=== PATIENT | male | born 1990 | race Two or more races ===

== ENCOUNTER 2024-08-26 18:10 | Emergency (ER) | payer MEDICAID, SELFPAY ==
[2024-08-26 18:22] VITALS: BP 131/85; PULSE 128; RESP 20; TEMP 38.6; O2SAT 98
--- NOTE | 2024-08-26 18:30 | PD.EDRME ---
Rapid Medical Screening Exam RME Arrival date/time: 08/26/24 18:10 Chief Complaint: Fever Time Seen by Provider: 08/26/24 18:15 Vital signs: Vital Signs Temperature 101.4 F H 08/26/24 18:22 Pulse Rate 128 H 08/26/24 18:22 Respiratory Rate 20 08/26/24 18:22 Blood Pressure 131/85 H 08/26/24 18:22 Pulse Oximetry (%) 98 08/26/24 18:22 Oxygen Delivery Method Room Air 08/26/24 18:22 Vital signs reviewed by provider: Yes RME Narrative: 33-year-old male presents to the ED with a complaint of fever, chills, body aches, numbness and tingling to his extremities. This started suddenly today. Yesterday he scraped his left garcia with a nail.
--- NOTE | 2024-08-26 18:31 | XR_ITS ---
Examination: PA lateral chest 2 views TECHNIQUE: Upright PA and lateral chest 2 views Examination time: August 26, 2024 2010 hours INDICATIONS: Flu symptoms beginning 2 days ago FINDINGS: Normal heart size. Lungs are clear. The osseous structures are intact IMPRESSION: No active disease
[2024-08-26 19:06] LABS: Lactate (Lactic Acid) 1.6 mMol/L (0.4-2.0)
[2024-08-26 19:07] LABS: Basophils % (Auto) 0 % (0-2.5); Eosinophils % (Auto) 0 % (0-10); Hematocrit 40.4 % (41.0-53.0); Hemoglobin 13.8 g/dL (13.5-16.0); Immature Granulocytes % (Auto) 0 % (0-0); Immature Granulocytes Auto 0.04 Thou/mm3 (0.00-0.00); Lymphocytes # (Auto) 1.2 Thou/mm3 (1.0-4.8); Lymphocytes % (Auto) 11 % (10-50); Mean Corpuscular HGB Conc 34.2 g/dl (31.0-37.0); Mean Corpuscular Hemoglobin 30.7 pg (25.0-35.0); Mean Corpuscular Volume 90 fL (80-100); Monocytes # (Auto) 0.9 Thou/mm3 (0.0-0.8); Monocytes % (Auto) 8 % (0-12); Neutrophils % (Auto) 80 % (37-80); Nucleated Red Blood Cell % 0 /100 WBC (0); Platelet Count 232 Thou/mm3 (140-440); RDW Standard Deviation 42.7 fL (35.1-43.9); Red Blood Count 4.49 Miln/mm3 (4.50-5.90); White Blood Count 11.2 Thou/mm3 (3.8-10.6)
[2024-08-26] MEDS: ACETAMINOPHEN 325 MG TABLET 650 MG PO (19:31)
[2024-08-26 19:46] LABS: Collection Type, Urine Clean Catch; Squamous Epithelial Cell,Urine 0 /hpf (0-5); WBC,Urine 0 /hpf (0-5)
[2024-08-26 19:49] VITALS: BP 134/85; PULSE 112; RESP 22; TEMP 38; O2SAT 95
[2024-08-26 19:58] LABS: Amorphous Crystals,Urine Present (Absent); Bilirubin,Urine Negative (Negative); Blood,Urine Negative (Negative); Glucose, Urine 1+ (Negative); Ketones,Urine Negative (Negative); Leukocyte Esterase,Urine Negative (Negative); Nitrite,Urine Negative (Negative); Protein,Urine Trace (Neg - Trace); RBC,Urine 6 /hpf (0-3); Specific Gravity,Urine 1.025 (1.001-1.035); Urobilinogen,Urine Negative mg/dL (0.0-1.0)
[2024-08-26 20:00] LABS: Clarity,Urine Turbid (Clear/Hazy); Color,Urine Lt-Orange (Lt Yel-Yel)
[2024-08-26 20:32] LABS: Alanine Aminotransferase 26 U/L (10-49); Albumin, Serum 4.6 gm/dL (3.5-5.0); Albumin/Globulin Ratio 1.7 (1.2-2.2); Alkaline Phosphatase 83 U/L (46-116); Anion Gap 6 (7-16); Aspartate Amino Transferase 30 U/L (0-34); BUN/Creatinine Ratio 6 Ratio (12-20); Bilirubin,Total 0.5 mg/dL (0.3-1.2); Blood Urea Nitrogen 6 mg/dL (9-23); Calcium 9.3 mg/dL (8.3-10.6); Calcium (Corrected) 9.3 mg/dL (8.5-10.1); Carbon Dioxide 24.8 mMol/L (20.0-31.0); Chloride 98 mMol/L (98-107); Globulin 2.7 gm/dL (2.3-3.5); Glucose 125 mg/dL (74-106); Osmolality,Calculated 257 (275-295); Potassium 3.6 mMol/L (3.4-5.1); Sodium 129 mMol/L (136-145); Total Protein 7.3 gm/dL (5.7-8.2); eGFR > 60 See Note
--- NOTE | 2024-08-26 21:03 | PD.EDADULT ---
ED General RME/HPI General Chief complaint: Fever Stated complaint: BODY ACHES, ARMS TINGLING, FEVER Time Seen by Provider: 08/26/24 18:15 Arrival date/time: 08/26/24 18:10 CC: None fever and bodyaches HPI ongoing started yesterday took no ibuprofen or Tylenol yesterday. Patient denies any fever chills chest pain shortness of breath difficulty breathing. RME / HPI RME / HPI narrative: 33-year-old male presents to the ED with a complaint of fever, chills, body aches, numbness and tingling to his extremities. This started suddenly today. Yesterday he scraped his left garcia with a nail. Related Data Previous Rx's ?Medication ?Instructions ?Recorded ibuprofen 600 mg tablet 600 mg PO Q8H PRN pain #10 tabs 08/26/24 Allergies Allergy/AdvReac Type Severity Reaction Status Date / Time No Known Allergies Allergy Verified 08/26/24 18:13 Review of Systems Review of Systems Narrative Review of Systems: GEN: + fever, no chills, no weight loss EYES: No discharge, no visual changes, no pain HEENT: No ear pain, no congestion, no sore throat PULM: No shortness of breath, no cough, no congestion CV: No chest pain, no dyspnea on exertion, no palpitations GI: No nausea, no vomiting, no diarrhea, no pain, no constipation : No frequency, no urgency, no dysuria MUSC/SKEL: No joint pain, no back pain SKIN: No rash PSYCH: No hallucinations, no depression HEME/LYMPH: No easy bleeding or bruising tendencies NEURO: No weakness, no headache, + body aches Past Medical History Past Medical History NEUROLOGIC: Negative Seizures CARDIAC: Negative Congestive Heart Failure RESPIRATORY: Negative Chronic Obstructive Pulmonary Disease (COPD) GENITOURINARY: Negative Renal Disease ENDOCRINE: Negative Diabetes Mellitus Type 1 or Diabetes Mellitus Type 2 OTHER HISTORY: Negative Blood Transfusions or Anesthesia Reactions Social History SMOKING STATUS: Current every day smoker ED Exam Narrative Physical exam: [General: Not in any acute distress Head normocephalic HEENT: Within acceptable limits Neck is supple nontender Chest equal chest rise nontender to palpation Respiratory: Clear to auscultation no wheezes crackles or rubs CV: Rate rhythm is regular no murmurs rubs or clicks Abdomen is soft nontender no masses positive bowel sounds all 4 quadrants Back: No CVA tenderness no spinous process tenderness from cervical spine thoracic and lumbar spine Skin: Small abrasions to the left garcia, all closed healed there is no surrounding erythema or edema. Otherwise skin is intact no petechiae rash induration ulceration or crepitus Extremities: Moving all extremity against resistance cap refill less than 2 seconds neurosensory intact Neuro: Awake alert oriented x3 Glascow coma 15 no focal deficits] Course Course Course Narrative: I suspect this is all viral in nature, patient be discharged home with a prescription for ibuprofen he can follow-up with his primary care provider. Quality Measures none Orders Category Date Time Status Bedside COVID-19 Antigen Test NOW Care 08/26/24 18:37 Active Bedside Influenza A&B Antigen Test NOW Care 08/26/24 18:37 Completed IV [Insert IV] NOW Care 08/26/24 18:34 Active XR chest 2V Stat Exams 08/26/24 18:31 Completed Blood Culture (Lab) Stat Lab 08/26/24 18:52 Received CBC Stat Lab 08/26/24 18:56 Results CMP [Comprehensive Metabolic Panel] Stat Lab 08/26/24 18:56 Results CRP [C-Reactive Protein] Stat Lab 08/26/24 18:56 Results ESR [Sed Rate (ESR)] Stat Lab 08/26/24 18:56 Results Lactate (Lactic Acid) Stat Lab 08/26/24 18:56 Completed Urinalysis Stat Lab 08/26/24 19:17 Completed Urine Culture Stat Lab 08/26/24 19:17 Received Acetaminophen Tab [Tylenol Tab] Med 08/26/24 18:34 Discontinued 650 mg PO X1 ONE Vital Signs Vital signs: Vital Signs Temperature 101.4 F H 08/26/24 18:22 Pulse Rate 128 H 08/26/24 18:22 Respiratory Rate 20 08/26/24 18:22 Blood Pressure 131/85 H 08/26/24 18:22 Pulse Oximetry (%) 98 08/26/24 18:22 Oxygen Delivery Method Room Air 08/26/24 18:22 Discharge Plan Plan Patient Disposition: HOME (Self Care) Patient condition on transfer: Stable Prescriptions/Referrals Prescriptions/Med Rec: New ibuprofen 600 mg tablet 600 mg PO Q8H PRN (Reason: pain) Qty: 10 0RF Referrals: Tigre,Manny Y, MD [Physician] - In 1 week No Primary/Family,Physician [Primary Care Provider] - In 1 week Problem List Clinical Impression: Fever, Viral syndrome, Abrasion of left leg Patient/Caregiver Discharge Instructions Education Materials: ED Viral Syndrome (Adult) Additional Instructions: Take the medications for pain and fever relief follow-up with your primary care provider listed above if there is worsening of symptoms return the emergency room medially for further evaluation. Print Language: Icelandic Stand Alone Forms: Harper Award Info., Patient Portal Info Letter, Work/School Release CHANG/ARELY Supervising Physician CHANG/ARELY Supervising Physician: Harvinder Kearns ENP [facility] Clinical Information Provided by: patient Medical Records reviewed [facility] Meds/Rx considered, not ordered None Labs/Rad/Tests considered, not ordered None Chronic Illness/Social Conditions Explain: None EKG EKG not done Labs Lab(s) Interpretation(s): CBC shows a mild leukocytosis of 11.2 no anemia thrombocytopenia CMP shows a sodium 129 no other significant electrolyte imbalances BUN of 6 glucose of 125. Lactic 1.6 no transaminitis or T. bili elevation. Urine is turbid but no signs of infection. Imaging Imaging Interpretation(s): Chest x-ray is negative for any acute finding. Medication Administration(s) Medication Administration History Discontinued Medications Acetaminophen (Acetaminophen 325 Mg Tablet) 650 mg PO X1 ONE Stop: 08/26/24 18:35 Last Admin: 08/26/24 19:31 Dose: 650 mg Documented By: GAETANO
[2024-08-26 21:18] LABS: Sed Rate (ESR) 30 mm/hr (0-15)
[2024-08-26] MEDS: IBUPROFEN TAB 600 MG TABLET PO (21:32)
[2024-08-26] MEDS: DIPHTH,PERTUSS(ACELL),TET VAC 0.5 ML SYR- ADULT IMi (21:33)
== END 2024-08-26 21:39 | disposition home or self-care (01) ==
PROVIDERS: Physician Assistant; Emergency Provider Emergency Medicine
DX: B34.9 Viral infection, unspecified (principal); S80.812A Abrasion, left lower leg, initial encounter; X58.XXXA Exposure to other specified factors, initial encounter; Z23 Encounter for immunization
CPT/HCPCS: 36415; 71046; 80053; 81001; 83605; 85025; 85652; 86140; 87040; 87086; 87400; 87811; 90471; 90715; 99283; A9270